=== PATIENT | female | born 1955 | race Native Hawaiian/Other Pacific Islander ===

== ENCOUNTER 2019-01-28 14:35 | Observation (INO) | payer BC ==
[~2019-01-28] VITALS: Ht 165.1 cm; Wt 66.4 kg
[2019-01-28 15:59] LABS: PLATELET COUNT 266 K/uL (152-353)
[2019-01-28 16:00] VITALS: BP 142/71; TEMP 98.4
[2019-01-28 16:17] LABS: POTASSIUM 4.7 mmol/L (3.6-5.2)
[2019-01-28 16:18] LABS: PARTIAL THROMBOPLASTIN TIME 25.3 SECONDS (24.5-33.6)
[2019-01-28 17:43] VITALS: BP 142/71; TEMP 98.4; Ht 165.1 cm; Wt 66.4 kg
[2019-01-28] MEDS ORDERED: AMLODIPINE BESYLATE PO (19:55)
[2019-01-28] MEDS ORDERED: LINZESS72 MCG PO (19:57)
[2019-01-28] MEDS ORDERED: [UNRECOGNIZED DRUG - OTHER] PO (19:58)
[2019-01-28] MEDS ORDERED: MULTI VITAMIN D1 TAB PO (19:59)
[2019-01-28 20:00] VITALS: BP 117/70; TEMP 98.3
[2019-01-28] MEDS ORDERED: CALCIUM500 M3 PO (20:00)
[2019-01-28] MEDS ORDERED: PAPAYA ENZYM PO (20:01)
[2019-01-28 23:56] VITALS: BP 101/51; TEMP 97.8
[2019-01-29 04:00] VITALS: BP 118/70; TEMP 97.6
[2019-01-29 08:00] VITALS: BP 111/62; TEMP 98.3
== END 2019-01-29 11:15 | disposition home or self-care (01) ==
LOC: MED/SURG 14:35
PROVIDERS: ADMIT Family Medicine
DX: R07.89 Other chest pain (principal); I10 Essential (primary) hypertension
CPT/HCPCS: 36415; 80053; 82550; 84484; 85027; 85610; 85730; 93005; 96365; 96372; 99220; G0378; G0379; J1650; J2550

== ENCOUNTER 2019-01-31 09:29 | Outpatient (CLI) | payer BC ==
[~2019-01-31 09:29] MED LIST: AMLODIPINE BESYLATE PO; CALCIUM500 M3 PO; LINZESS72 MCG PO; MULTI VITAMIN D1 TAB PO; PAPAYA ENZYM PO; [UNRECOGNIZED DRUG - OTHER] PO
== END 2019-01-31 22:30 | disposition home or self-care (01) ==
LOC: NM 09:29
DX: R07.89 Other chest pain (principal)
CPT/HCPCS: A9500

== ENCOUNTER 2019-05-22 07:53 | Outpatient (CLI) | payer BC | END 2019-05-22 19:26 | disposition home or self-care (01) | LOC: RESP 07:53 | DX: I10 Essential (primary) hypertension (principal); R07.89 Other chest pain | CPT/HCPCS: 93306 ==

== ENCOUNTER 2019-06-25 07:39 | Outpatient (CLI) | payer BC | END 2019-06-25 20:07 | disposition home or self-care (01) | LOC: LABW 07:39 | DX: R19.7 Diarrhea, unspecified (principal) | CPT/HCPCS: 83630; 87015; 87045; 87324; 87328; 87329; 87449; 87899 ==

== ENCOUNTER 2020-07-13 07:00 | Outpatient (CLI) | payer BC, OTHER ==
[2020-07-13 07:22] LABS: PLATELET COUNT 217 K/uL (152-353)
== END 2020-07-13 19:13 | disposition home or self-care (01) ==
LOC: LABW 07:00
PROVIDERS: ATTEND Family Medicine
DX: Z00.00 Encounter for general adult medical examination without abnormal findings (principal); Z79.899 Other long term (current) drug therapy; R53.83 Other fatigue; R73.09 Other abnormal glucose
CPT/HCPCS: 36415; 80053; 80061; 82784; 83036; 83516; 84443; 85027

== ENCOUNTER 2020-07-22 08:31 | Outpatient (CLI) | payer BC, OTHER | END 2020-07-22 21:38 | disposition home or self-care (01) | LOC: US 08:31 | PROVIDERS: ATTEND Nurse Practitioner Family | DX: Z12.31 Encounter for screening mammogram for malignant neoplasm of breast (principal); R10.10 Upper abdominal pain, unspecified; R25.2 Cramp and spasm; R19.7 Diarrhea, unspecified ==

== ENCOUNTER 2020-12-28 02:41 | Emergency (ER) | payer BC, OTHER ==
[~2020-12-28] VITALS: Ht 165.1 cm; Wt 66.2 kg
[2020-12-28 03:11] LABS: PLATELET COUNT 198 K/uL (152-353)
[2020-12-28 03:23] LABS: POTASSIUM 3.8 mmol/L (3.6-5.2); SODIUM 139 mmol/L (136-145)
[2020-12-28 03:29] LABS: PARTIAL THROMBOPLASTIN TIME 22.5 SECONDS (24.5-33.6)
[2020-12-28 04:35] VITALS: BP 147/84; TEMP 98.9
== END 2020-12-28 04:35 | disposition home or self-care (01) ==
LOC: ED 02:46
PROVIDERS: Hospitalist
DX: R00.2 Palpitations (principal)
CPT/HCPCS: 36415; 80053; 82550; 83880; 84484; 85027; 85379; 85610; 85730; 93005; 96374; 99284; J2405

== ENCOUNTER 2021-02-12 12:53 | Emergency (ER) | payer BC, OTHER ==
[~2021-02-12] VITALS: Ht 165.1 cm; Wt 61.2 kg
[2021-02-12 13:00] VITALS: BP 133/83; TEMP 98.1
[2021-02-12 13:53] LABS: PLATELET COUNT 229 K/uL (152-353)
[2021-02-12 14:10] LABS: POTASSIUM 3.5 mmol/L (3.6-5.2)
== END 2021-02-12 16:40 | disposition home or self-care (01) ==
LOC: ED 12:53
PROVIDERS: Emergency Medicine Emergency Medical Services
DX: K58.8 Other irritable bowel syndrome (principal)
CPT/HCPCS: 36415; 80053; 81000; 83690; 85027; 87077; 87086; 87088; 87186; 96360; 96375; 99284; J2405

== ENCOUNTER 2021-05-31 12:11 | Outpatient (CLI) | payer BC | END 2021-05-31 18:58 | disposition home or self-care (01) | LOC: RAD 12:11 | PROVIDERS: ATTEND Family Medicine | DX: J40 Bronchitis, not specified as acute or chronic (principal) ==

== ENCOUNTER 2022-09-21 10:12 | Outpatient (CLI) | payer BC | END 2022-09-21 19:14 | disposition home or self-care (01) | LOC: LABW 10:12 | PROVIDERS: ATTEND Internal Medicine | DX: E87.6 Hypokalemia (principal) | CPT/HCPCS: 36415; 80053 ==

== ENCOUNTER 2022-11-15 07:54 | Outpatient (CLI) | payer BC | END 2022-11-15 18:54 | disposition home or self-care (01) | LOC: NM 07:54 | PROVIDERS: ATTEND Internal Medicine | DX: I10 Essential (primary) hypertension (principal); R53.83 Other fatigue; Z79.899 Other long term (current) drug therapy | CPT/HCPCS: A9500 ==